=== PATIENT | female | born 1940 | race Caucasian/White ===

== ENCOUNTER 2019-11-13 11:02 | Inpatient (IN) | payer MEDICARE, SELFPAY ==
[2019-11-13] VITALS (12 sets, daily range): BP systolic 120–165; BP diastolic 49–108; PULSE 85–118; RESP 14–27; TEMP 36–36.8; O2SAT 92–98; BMI 33.8
--- NOTE | 2019-11-13 | ECHO_ITS ---
Patient Info Name: Luz Guardado Age: 79 years : 1940 Gender: Female Ht: 65 in Wt: 207 lbs BSA: 2.11 m2 HR: 100 bpm BP: 128 / 49 mmHg Heart Rhythm: Sinus Rhythm Technical Quality: Good Exam Date: 11/13/2019 3:50 PM Exam Location: [facility] Patient Status: Inpatient Admit Date: 11/13/2019 Staff Ordering Physician: Sendy Canales MD Valve And Regulator Repairer: Vu Palmer RDCS Attending Provider: Ember Vale MD Referring Physician: Ally PURDY; Exam Type: CA echo dop color flow w con Study Info Indications I50.9 - Heart failure, unspecified Strain analysis performed. Complete two-dimensional, color flow and Doppler transthoracic echocardiogram is performed with contrast to opacify the left ventricle and to improve the deliniation of the left ventricle endocardial borders. Contrast/Agitated Saline Contrast/Ag. Saline: Definity Amount: 3.00 ml Administered By: Karyn De Anda RN Existing IV Access: Yes History/Risk Factors CHF; elevated trops, NSTEMI v STEMI, BNP 8920, SOB, edema, HTN. Summary 1. Severe left ventricular dysfunction with akinesis of the mid and distal anteroseptal rene, as well as distal inferior and lateral rene consistent with an ischemic cardiomyopathy. Apical dyskinesis. Calculated ejection fraction 37%, visual estimate of EF is 30-35%. Diastolic dysfunction grade 1 is present. The global longitudinal strain is-7%, severely diminished. Mild concentric left ventricular hypertrophy, normal left ventricular size. 2. Trivial mitral and tricuspid regurgitation. 3. No evidence of pulmonary hypertension. 4. Normal sinus rhythm. Left Ventricle Left ventricular chamber dimension is normal. Left ventricular systolic function is normal, estimated at 30-35%. There is mildly increased left ventricular wall thickness. Left ventricular septal wall motion is normal. The left ventricular diastolic function is grade I diastolic dysfunction. Global longitudinal strain is severely elevated at 7 %. Right Ventricle Right ventricular chamber dimension is normal. Right ventricular systolic function is normal. Left Atria Left atrial chamber dimension is normal. Right Atria Right atrial chamber dimension is normal. Aortic Valve The aortic valve is trileaflet. There is no aortic valve sclerosis. There is no aortic valve stenosis. There is no aortic valve regurgitation. Pulmonic Valve The pulmonic valve is normal. There is no pulmonic valve stenosis. There is no pulmonic regurgitation. Mitral Valve The mitral valve has normal leaflets. There is no mitral valve stenosis. There is trace mitral valve regurgitation. Tricuspid Valve The tricuspid valve leaflets are normal. There is no significant tricuspid valve stenosis. There is trace tricuspid valve regurgitation. No pulmonary hypertension, estimated pulmonary arterial systolic pressure is 27 mmHg. Pericardium/Pleural The pericardium appears normal. There is no pericardial effusion. Inferior Vena Cava Normal inferior vena cava with >50% collapse upon inspiration consistent with Empty right atrial pressure, 5 mmHg. Aorta The aortic root size at the sinus of Valsalva is normal. The prox ascending aorta size is normal. Left Ventricular Outflow Tract Name Value Normal --------
--- NOTE | ~2019-11-13 | US_ITS ---
EXAMINATION: US venous doppler LE EXAM DATE: 11/13/2019 16:44 INDICATION: Bilateral leg edema. TECHNIQUE: Multiple grayscale, color flow and Doppler images of the lower extremity deep venous syste ms bilaterally were obtained and reviewed. Comparison is made to prior examination from 08/26/2014. FINDINGS: Bilateral calf edema noted. Right side: The right common femoral, femoral and profunda veins demonstrate normal color flow, respi ratory variation, augmentation and compressibility. Compressibility, color flow confirmed within the right popliteal, posterior tibial, peroneal, and greater saphenous veins. Left side: The left common femoral, femoral and profunda veins demonstrate normal color flow, respira tory variation, augmentation and compressibility. Compressibility, color flow confirmed within the l eft popliteal, posterior tibial, peroneal, and greater saphenous veins. IMPRESSION: 1. No lower extremity deep venous thrombosis bilaterally. Reviewed, dictated and finalized at location A.
--- NOTE | ~2019-11-13 | NM_ITS ---
EXAMINATION: NM tay stress w perfusion DATE: 11/15/2019 11:45 INDICATION: Ischemic cardiomyopathy. Congestive heart failure. TECHNIQUE: Rest images were obtained following intravenous administration of 10.6 mCi Tc99m tetrofosm in (Myoview). The patient was infused intravenously with Lexiscan (regadenoson). Then, 20.2 mCi Tc99m tetrofosmin (Myoview) was administered intravenously, and stress images were obtained. Data was erinn nstructed into short axis and horizontal and vertical long axis SPECT images. Gated SPECT images coul d not be obtained due to arrhythmia. COMPARISON: Chest CT 11/13/2019 FINDINGS: There is a large, severe, fixed perfusion defect involving left ventricular apex, apical se gments, mid anterior segment, and mid anterolateral segment, consistent with infarct. There are small , mild, reversible perfusion defects involving mid anterior and mid inferolateral segments of left ve ntricle, consistent with ischemia. IMPRESSION: 1. Large area severe infarct centered at left ventricular apex. 2. Small areas of mild ischemia involving mid anterior and mid inferolateral segments of left ventric le. 3. Ejection fraction could not be measured. Reviewed, dictated and finalized at location A. IMPRESSION: 1. Large area severe infarct centered at left ventricular apex. 2. Small areas of mild ischemia involving mid anterior and mid inferolateral se gments of left ventricle. 3. Ejection fraction could not be measured.
--- NOTE | ~2019-11-13 | CT_ITS ---
EXAMINATION: CTA chest PE protocol DATE: 11/13/2019 12:31 INDICATION: Shortness of breath. TECHNIQUE: Computed tomography angiography (CTA) of the chest was performed with 100 mL Omnipaque-350 intravenous contrast timed to evaluate the pulmonary arteries. Coronal maximum intensity projection 3D-reconstructions were created by the technologist. Automated exposure control and iterative reconst ruction technique were employed. The dose-length product was 576.47 mGy-cm. COMPARISON: None. FINDINGS: There are moderate-sized right and small left pleural effusions. There is passive atelectas is in the inferior lungs. There is smooth septal thickening in the lungs, consistent with pulmonary e kay. There is a multinodular goiter that extends into the superior mediastinum. There is left ventri cular and left atrial enlargement of the heart. No pericardial effusion. There is no pulmonary embolu s. There is mild left hilar lymphadenopathy, likely reactive. There is severe thoracic spondylosis. IMPRESSION: 1. No pulmonary embolus. 2. Mild pulmonary edema. 3. Moderate-sized right and small left pleural effusions. Reviewed, dictated and finalized at location A.
--- NOTE | 2019-11-13 11:09 | ED.SOB ---
HPI - SOB/Dyspnea General Chief Complaint: Shortness of Breath/Dyspnea Stated Complaint: chf Time Seen by Provider: 11/13/19 11:09 Source: patient Mode of arrival: ambulatory Limitations: no limitations History of Present Illness HPI Narrative: Patient is a 79-year-old female who presents for evaluation of shortness of breath. Patient reportedly with shortness of breath over the past several days. Shortness of breath is not necessarily worse with exertion, but patient is unable to lay flat due to this. She reports minimal lower extremity swelling. She denies any chest pain. No recent cough, cold, fever, congestion. No belly pain, nausea or vomiting. Patient states her symptoms seem to worsen as mold counts increased, she has a history of allergies, no history of asthma and initially thought her symptoms were due to this. Related Data Home Medications Medication Instructions Recorded Confirmed aspirin 81 mg tablet,delayed 81 mg PO DAILY 05/15/19 release blood sugar diagnostic #10 each 05/15/19 celecoxib 200 mg capsule 200 mg PO BID 05/15/19 latanoprost 0.005 % eye drops 1 drop EACH EYE DAILY 05/15/19 naproxen sodium 220 mg capsule 220 mg PO BID PRN 05/15/19 omega-3 fatty acids 1,000 mg 1,000 mg PO BID 05/15/19 capsule sitagliptin 50 mg-metformin ER 1 tablet PO DAILY 05/15/19 1,000 mg tablet,extended release 24h mp vitamin E 200 unit capsule 200 unit PO DAILY 05/15/19 Allergies Allergy/AdvReac Type Severity Reaction Status Date / Time No Known Allergies Allergy Verified 11/13/19 11:11 Review of Systems Review of Systems: Narrative: CONSTITUTIONAL: Denies fever, chills, or sweats. EYES: Denies visual changes, redness, or discharge. ENT: Denies rhinorrhea, congestion, sore throat, or otalgia. CARDIOVASCULAR: Denies chest pain, palpitations, or edema. RESPIRATORY: Reports shortness of breath GASTROINTESTINAL: Denies abdominal pain, nausea, vomiting, or diarrhea. GENITOURINARY: Denies dysuria or hematuria. SKIN: Denies rash or itching. MUSCULOSKELETAL: Denies back pain, joint pain, or myalgia. NEUROLOGIC: Denies headache, numbness, or weakness. [facility] Past Medical History Medical History (Updated 11/13/19 @ 13:28 by Sendy Canales MD) Hypertension Seasonal allergies Thyroid goiter Social History Social History Smoking status: Never smoker Second hand tobacco smoke exposure: No Alcohol intake: never Exam Narrative: Exam Narrative: GENERAL: Awake, alert, conversant HEAD: Normocephalic, atraumatic. EYES: PERRLA and EOMI. ENT: Nares clear, no rhinorrhea or epistaxis. Mucous membranes moist. NECK: Supple. Goiter. CHEST: Tachypneic, mild use of accessory muscles to breathe HEART: Tachycardic rate, sinus rhythm ABDOMEN:Non distended, non tender EXTREMITIES: Normal range of motion. Pitting edema, mid shins bilateral lower extremities. No calf tenderness or erythema. SKIN: Warm, dry, no rash. NEURO:No focal deficits. Alert and oriented x3 Course Vital Signs Vital signs: Vital Signs Temperature 36.5 C 11/13/19 11:05 Pulse Rate 118 H 11/13/19 11:05 Respiratory Rate 22 H 11/13/19 11:05 Blood Pressure 165/89 H 11/13/19 11:05 Pulse Oximetry 92 11/13/19 11:05 Temperature 36.5 C 11/13/19 11:05 Pulse Rate 114 H 11/13/19 13:11 Respiratory Rate 27 H 11/13/19 13:11 Blood Pressure 146/108 H 11/13/19 13:11 Pulse Oximetry 95 11/13/19 13:11 MDM - SOB/Dyspnea MDM Narrative Medical decision making narrative: Patient presented for evaluation of shortness of breath from her primary care physician's office. At the time of initial assessment, ABCs are intact, vital signs are notable for hypertension, tachycardia, borderline hypoxemia and tachypnea. Clinical exam notable for coarse breath sounds bilaterally, crackles bilaterally with concern for CHF given the patient's history. Laboratory results are notable for elevated BNP, mildly elevated troponin, EKG w
--- NOTE | 2019-11-13 11:12 | ECG_ITS ---
Measurements Intervals [place] Rate: 121 P: 70 GA: 148 QRS: -18 QRSD: 106 T: 60 QT: 282 QTc: 401 Interpretive Statements SINUS TACHYCARDIA LOW QRS VOLTAGE- LIMB LEADS POOR R WAVE PROGRESSION, ANTERIOR LEADS ANTEROLATERAL ST ELEVATION- CONSIDER ACUTE INJURY HIGH LATERAL ST ELEVATION- CONSIDER ACUTE INJUR BASELINE ARTIFACT- II, III, AVF ABNORMAL ECG Electronically Signed On 11-13-2019 12:47:36 CDT by Deep Valdivia D.O.
[2019-11-13 11:31] LABS: Basophils Absolute Auto 0.1 K/mm3 (0.0-0.1); Basophils Percent Auto 0.5 % (0.2-1.2); Eosinophils Absolute Auto 0.2 K/mm3 (0-0.3); Eosinophils Percent Auto 1.4 % (0-4.4); Hematocrit 38.6 % (37.0-47.0); Hemoglobin 12.6 g/dL (12.0-15.0); Immature Granulocyte Absolute 0.04 K/mm3 (0.00-0.031); Immature Granulocyte Percent A 0.4 % (0-0.5); Lymphocytes Absolute Auto 3.74 K/mm3 (0.9-3.2); Lymphocytes Percent Auto 32.8 % (18.3-44.2); Mean Corpuscular HGB Conc 32.6 g/dl (32-36); Mean Corpuscular Hemoglobin 30.2 pg (26-34); Mean Corpuscular Volume 92.6 fl (80-100); Mean Platelet Volume 11.2 fl (7.4-10.4); Monocytes Absolute Auto 0.9 K/mm3 (0.1-0.6); Monocytes Percent Auto 7.8 % (2.6-8.5); Neutrophils Absolute Auto 6.5 K/mm3 (1.3-6.7); Neutrophils Percent Auto 57.1 % (45.5-73.1); Platelet Count Result 383 k/mm3 (150-375); Red Blood Count 4.17 M/mm3 (4.2-5.4); Red Cell Distribution Width 13.2 % (11.5-14.5); White Blood Count 11.4 K/mm3 (4.5-10.0)
[2019-11-13 11:36] LABS: Prothrombin Time 13.1 Seconds (11.1-14.7)
[2019-11-13 11:37] LABS: Partial Thromboplastin Time 26.9 SECONDS (22.3-36.8)
[2019-11-13 11:38] LABS: Blood Urea Nitrogen 9 mg/dL (7-17); Calcium 9.1 mg/dL (8.4-10.2); Carbon Dioxide 21 mmol/L (22-30); Chloride 104 mmol/L (98-107); Estimated CRCL calculation 73 ml/min; Estimated Glomerular Filt Rate > 60; Glucose 112 mg/dL (65-105); Potassium 4.1 mmol/L (3.4-5.0); Sodium 136 mmol/L (137-145)
[2019-11-13 11:39] LABS: Alveolar/Arterial O2 Gradient 61.5 mmHg; Base Excess ABG -5.3 mEq/l (+/-2.0); Fractional Inspired Oxygen 21 %; HCO3 ABG 18.5 mEq/l (22.0-26.0); Oxygen Content ABG 14.3 %vol (16.0-22.0); PCO2 ABG 30.9 mmHg (35.0-45.0); PO2 ABG 51.2 mmHg (80.0-100.0); PO2 FiO2 Ratio Arterial Blood 2.44 %; Total Hemoglobin 13.2 g/dL (12.0-18.0); pH ABG 7.394 (7.350-7.450)
[2019-11-13 11:39] LABS: D Dimer 0.77 ug/mL (<0.48)
[2019-11-13 11:41] LABS: Device ROOM AIR; Modified Allen's Test Pass; Oxygen Saturation ABG 86.6 % (95.0-100.0); Site Drawn RIGHT RADIAL
[2019-11-13 12:06] LABS: NT Pro B Type Natriuretic Pept 8920 PG/ML (5-100); Troponin I 0.532 ng/mL (0.000-0.034)
[2019-11-13] MEDS: FUROSEMIDE INJ 40 MG/4 ML VIAL 20 MG IV PUSH (13:38)
--- NOTE | 2019-11-13 15:07 | ADMGEN ---
This patient, Luz Guardado, was admitted to IMU Room 206-01 on 11-13-2019 at 1430. Patient/family oriented to hospital policies and general routines including ID bracelet, bed and alarms, visiting hours, pain management, procedures, bathroom and other care routines, personal items, smoking policy, room service/diet, and visiting hours. Valuables list has been completed. Information on how to activate the Rapid Response Team has been discussed. Patient/Family are encouraged to report perceived risks to care and to ask questions if they do not understand what they are told or what they should do.
[2019-11-13 15:09] LABS: Glucose Point of Care 131 (65-105)
[2019-11-13 15:52] LABS: Troponin I 0.591 ng/mL (0.000-0.034)
--- NOTE | 2019-11-13 15:54 | ECG_ITS ---
Measurements Intervals [place] Rate: 99 P: 60 CT: 166 QRS: -6 QRSD: 105 T: 121 QT: 381 QTc: 491 Interpretive Statements SINUS RHYTHM POSSIBLE LEFT ATRIAL ENLARGEMENT LOW QRS VOLTAGE IN LIMB LEADS ANTEROLATERAL ST ELEVATION MYOCARDIAL INFARCT- PROBABLY RECENT HIGH LATERAL ST ELEVATION- CONSIDER ACUTE INJURY BASELINE ARTIFACT- II, III, AVF ABNORMAL ECG Electronically Signed On 11-13-2019 17:07:11 CDT by Deep Valdivia D.O.
[2019-11-13 16:13] LABS: Hemoglobin A1C 6.5 % (<5.7)
[2019-11-13 16:27] LABS: Alanine Aminotransferase 18 U/L (4-35); Albumin Level 4.4 g/dL (3.5-5.1); Alkaline Phosphatase 75 U/L (38-126); Aspartate Amino Transferase 38 U/L (14-36); Bilirubin,Total 0.5 mg/dL (0.2-1.3)
[2019-11-13] MEDS: PERFLUTREN LIPID MICROSPHERES 1.5 ML VIAL DILUTED TO 10 ML TOTAL VOLUME IV PUSH (16:49)
[2019-11-13] MEDS: NITROGLYCERIN OINTMENT 1 INCH DOSE TRANSDERM ×2 (17:06→23:40)
[2019-11-13] MEDS: ENOXAPARIN 40 MG/0.4 ML SYRINGE SUB-Q (17:06)
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
[2019-11-13 18:55] LABS: Troponin I 0.652 ng/mL (0.000-0.034)
[2019-11-13] MEDS: ASPIRIN 81 MG CHEWABLE TABLET 324 MG PO (18:58)
[2019-11-13] MEDS: ACETAMINOPHEN 325 MG TABLET 650 MG PO (19:36)
[2019-11-13] MEDS: ENOXAPARIN 100 MG/ML SYRINGE 90 MG SUB-Q (21:23)
[2019-11-13] MEDS: carvediloL 3.125 MG TABLET PO (21:23)
[2019-11-13] MEDS: LATANOPROST 0.005% OP SOLN 2.5 ML BTL 1 DROP EACH EYE (22:34)
[2019-11-13 22:46] LABS: Glucose Point of Care 98 (65-105)
[2019-11-14] VITALS (20 sets, daily range): BP systolic 108–138; BP diastolic 46–81; PULSE 76–95; RESP 12–20; TEMP 35.9–36.7; O2SAT 92–98
[2019-11-14 04:37] LABS: Basophils Absolute Auto 0.1 K/mm3 (0.0-0.1); Basophils Percent Auto 0.7 % (0.2-1.2); Eosinophils Absolute Auto 0.2 K/mm3 (0-0.3); Eosinophils Percent Auto 2.3 % (0-4.4); Hematocrit 33.7 % (37.0-47.0); Hemoglobin 10.9 g/dL (12.0-15.0); Immature Granulocyte Absolute 0.02 K/mm3 (0.00-0.031); Immature Granulocyte Percent A 0.2 % (0-0.5); Lymphocytes Absolute Auto 2.71 K/mm3 (0.9-3.2); Lymphocytes Percent Auto 33.1 % (18.3-44.2); Mean Corpuscular HGB Conc 32.3 g/dl (32-36); Mean Corpuscular Hemoglobin 29.8 pg (26-34); Mean Corpuscular Volume 92.1 fl (80-100); Mean Platelet Volume 11.2 fl (7.4-10.4); Monocytes Percent Auto 12.7 % (2.6-8.5); Neutrophils Absolute Auto 4.2 K/mm3 (1.3-6.7); Platelet Count Result 294 k/mm3 (150-375); Red Blood Count 3.66 M/mm3 (4.2-5.4); White Blood Count 8.2 K/mm3 (4.5-10.0)
[2019-11-14 04:48] LABS: Blood Urea Nitrogen 14 mg/dL (7-17); Calcium 8.3 mg/dL (8.4-10.2); Carbon Dioxide 26 mmol/L (22-30); Chloride 103 mmol/L (98-107); Cholesterol 105 mg/dL (0-200); Estimated CRCL calculation 63 ml/min; Estimated Glomerular Filt Rate > 60; Glucose 134 mg/dL (65-105); Magnesium 1.5 mg/dL (1.6-2.3); Potassium 3.7 mmol/L (3.4-5.0); Sodium 136 mmol/L (137-145)
[2019-11-14] MEDS: NITROGLYCERIN OINTMENT 1 INCH DOSE TRANSDERM (06:23)
[2019-11-14 07:50] LABS: Glucose Point of Care 126 (65-105)
[2019-11-14] MEDS: OLMESARTAN MEDOXOMIL 20 MG TABLET 40 MG PO (09:51)
[2019-11-14] MEDS: ASPIRIN 81 MG ENTERIC TABLET PO (09:51)
[2019-11-14] MEDS: VITAMIN E 100 UNIT CAPSULE 200 UNIT PO (09:52)
[2019-11-14] MEDS: OMEGA 3 POLYUNSAT FATTY ACIDS 1 GM CAP PO (09:52)
[2019-11-14] MEDS: ENOXAPARIN 100 MG/ML SYRINGE 90 MG SUB-Q ×2 (09:53→20:33)
[2019-11-14] MEDS: ATORVASTATIN 40 MG TABLET PO (09:53)
[2019-11-14] MEDS: SPIRONOLACTONE 25 MG TABLET PO (09:54)
[2019-11-14] MEDS: FUROSEMIDE INJ 40 MG/4 ML VIAL 20 MG IV PUSH ×2 (09:54→16:41)
[2019-11-14] MEDS: carvediloL 3.125 MG TABLET PO ×2 (09:54→20:33)
[2019-11-14 11:41] LABS: Glucose Point of Care 100 (65-105)
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
--- NOTE | 2019-11-14 14:17 | PM.IMPN ---
Progress Note: A&P Assessment and Plan (1) Acute combined systolic and diastolic CHF, NYHA class 1: Onset Date: ~11/2019 Code(s): I50.41 - Acute combined systolic (congestive) and diastolic (congestive) heart failure Status: Inactive Assessment and Plan: Echocardiogram with a visually estimated at 30 to 35% with diastolic dysfunction grade 1. Continue to diuresis (2) Recent myocardial infarction of anterior wall: Status: Acute Assessment and Plan: Echocardiogram today shows findings consistent with ischemic cardiomyopathy with severe left ventricular dysfunction and akinesis of the mid and distal anteroseptal rene as well as the distal inferior and lateral rene with apical dyskinesis. Dr. Lainez has seen the patient, continue cardiology orders (3) Hypertension: Code(s): I10 - Essential (primary) hypertension Status: Acute Assessment and Plan: Will monitor closely given the addition of new medications (4) Type 2 diabetes mellitus: Code(s): E11.9 - Type 2 diabetes mellitus without complications Status: Acute Assessment and Plan: Hold Janumet as she did receive IV contrast today. Initiate sliding scale insulin, Accu-Cheks, and hypoglycemic protocol. Subjective Date/time seen: 11/14/19 14:17 Interval history: 79-year-old female with type 2 diabetes mellitus and hypertension who presented to the emergency department earlier this morning via private vehicle from home for evaluation of shortness of breath. Echo is EF 30% CT scan of chest shows small pleural effusion BL, trop slightly elevated. Pt seen by cardiology going for lexiscan royal AM, continue diuresis with IV lasix. Review of Systems Review of Systems: All systems reviewed & are unremarkable except as noted in HPI and below Cardiovascular: Cardiovascular: Denies chest pain Respiratory: Respiratory: Reports cough, Reports dyspnea and Reports dyspnea on exertion Exam Narrative: Exam Narrative: General: Well-developed elderly female sitting up in bed in no acute distress. Respiratory: Clear bilateral decreased air entry Cardiovascular: Regular rate and rhythm Gastrointestinal: Abdomen is soft, nontender Skin: Warm and dry. Extremities: No cyanosis or clubbing. Neurological: Alert. Cranial nerves 2-12 are grossly intact. No gross focal deficits to casual conversation. Psychiatric: Pleasant and cooperative with normal mood and affect. Objective Data Vital Signs Vital Signs: Vital Signs - 24 hr 11/13/19 14:30 11/13/19 15:09 11/13/19 16:00 Temperature 36.0 C L Pulse Rate 113 H 109 H 95 Respiratory Rate 14 Blood Pressure 141/89 H Pulse Oximetry 98 11/13/19 18:00 11/13/19 20:00 11/13/19 22:00 Temperature 36.1 C L Pulse Rate 110 H 98 85 Respiratory Rate 22 H Blood Pressure 120/59 L Pulse Oximetry 97 11/13/19 23:37 11/14/19 01:29 11/14/19 04:00 Temperature 36.8 C 36.2 C L Pulse Rate 96 81 80 Respiratory Rate 22 H 20 Blood Pressure 142/65 H 108/55 L Pulse Oximetry 98 96 11/14/19 06:00 11/14/19 07:55 11/14/19 08:00 Temperature 36.2 C L Pulse Rate 87 89 79 Respiratory Rate 12 Blood Pressure 138/63 Pulse Oximetry 98 11/14/19 08:48 11/14/19 09:54 11/14/19 10:00 Temperature Pulse Rate 88 83 Respiratory Rate Blood Pressure Pulse Oximetry 97 11/14/19 11:47 11/14/19 12:00 11/14/19 12:26 Temperature 36.1 C L Pulse Rate 86 84 Respiratory Rate 14 Blood Pressure 115/56 L Pulse Oximetry 96 95 11/14/19 13:03 Temperature Pulse Rate Respiratory Rate Blood Pressure Pulse Oximetry 92 Intake/Output Intake/Output: Intake & Output 11/11/19 06/0
[2019-11-14 16:00] LABS: Glucose Point of Care 153 (65-105)
[2019-11-14] MEDS: MAGNESIUM OXIDE 400 MG TABLET PO (16:40)
[2019-11-14] MEDS: LATANOPROST 0.005% OP SOLN 2.5 ML BTL 1 DROP EACH EYE (20:33)
[2019-11-14] MEDS: ACETAMINOPHEN 325 MG TABLET 650 MG PO (20:35)
[2019-11-14 20:43] LABS: Glucose Point of Care 126 (65-105)
[2019-11-15] VITALS (16 sets, daily range): BP systolic 118–142; BP diastolic 44–86; PULSE 70–94; RESP 16–20; TEMP 35.8–36.4; O2SAT 92–100
[2019-11-15] MEDS: ACETAMINOPHEN 325 MG TABLET 650 MG PO ×2 (04:40→20:25)
[2019-11-15 08:20] LABS: Glucose Point of Care 152 (65-105)
--- NOTE | 2019-11-15 09:58 | PM.PNCARD ---
Progress Note: A&P Assessment and Plan (1) Recent myocardial infarction of anterior wall: Status: Acute Assessment and Plan: Appears to have had a recent NE and has residual ischemic cardiomyopathy. Episode of chest tightness and slight pain 3 weeks ago with a traumatic event, no further tightness. Likely a completed infarct. (2) Congestive heart failure: Qualifiers: Heart failure type: other Qualified Code(s): I50.9 - Heart failure, unspecified Code(s): I50.9 - Heart failure, unspecified Status: Acute Assessment and Plan: Ischemic cardiomyopathy with CHF. Diuresing with IV Lasix and improving. Continue carvedilol, aspirin, spironolactone Will change Olmesartan to Entresto [place] will be $47/[place] Lexiscan pending Cardiac catheterization on Tuesday if significant ischemia found. 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 Also will be $47/ month BMP, magnesium and CBC today. (3) Hypertension: Qualifiers: Hypertension type: essential hypertension Qualified Code(s): I10 - Essential (primary) hypertension Code(s): I10 - Essential (primary) hypertension Status: Acute Assessment and Plan: Not at goal but improved. (4) Hypomagnesemia: Code(s): E83.42 - Hypomagnesemia Status: Acute Assessment and Plan: Check Mag level today. Continue Mag oxide. Additional Plan Further recommendations pending the outcome of the Lexiscan. Plan discussed with Dr Lainez 1005 11/15/2019 Time Spent With Patient Time with patient: 15 - 25 minutes Subjective Date/time seen: 11/15/19 09:38 Seen in stress lab Interval history: Follow up for: CHF, troponin of 0.5, and appears to have had a recent NE with ischemic cardiomyopathy. Date of service: 11/15/2019 Subjective: Leg cramps overnight. No chest discomfort. Shortness of breath is resolving. Still unable to lay flat in bed Review of Systems Constitutional: Constitutional: Reports fatigue and Denies weakness Eyes: Eyes: Denies blurry vision ENT: Denies epistaxis and Reports nasal discharge Cardiovascular: Cardiovascular: Denies chest pain, Denies pedal edema, Reports leg edema, Denies lightheadedness, Denies palpitations, Denies dyspnea, Denies dyspnea on exertion and Reports orthopnea Respiratory: Respiratory: Denies chest congestion, Reports cough, Denies dyspnea and Denies dyspnea on exertion Gastrointestinal: Gastrointestinal: Denies abdominal pain, Denies melena, Denies hematochezia, Denies heartburn, Denies nausea and Denies vomiting Genitourinary: Genitourinary: Denies hematuria Musculoskeletal: Musculoskeletal: Reports back pain (Chronic) and Reports arthralgias Integumentary/Breasts: Skin/Breast: Denies rash Neurologic: Denies behavioral changes, Denies confusion and Denies weakness Psychiatric: Psychiatric: Denies behavioral changes and Denies confusion Endocrine: Endocrine: Reports fatigue and Denies palpitations Hematologic/Lymphatic: Hematologic/Lymphatic: Denies easy bruising Exam Narrative: Exam Narrative: Pleasant, well-groomed female in no distress. Comfortable on the stretcher in stress lab Const: General: comfortable and no acute distress; No confusion Orientation/consciousness: No confusion HENMT: General nose exam: Normal nares present and no epistaxis Mouth: Yes moist mucous membranes Eyes: EOM: EOMs intact bilaterally Neck: Neck: supple and no JVD Resp: Effort & Inspection: normal respiratory effort and able to speak in complete sentences Auscultation: clear to auscultation bilaterally Cardio: Rate: regular rate Rhythm: regular rhythm Heart sounds: no gallops and no murmurs GI: Inspection:
--- NOTE | 2019-11-15 12:03 | EST_ITS ---
Patient Info Name: Luz Guardado Age: 79 years : 1940 Gender: Female Ht: 65 in Wt: 207 lbs BSA: 2.11 m2 HR: 83 bpm BP: 124 / 62 mmHg Heart Rhythm: Sinus Rhythm Exam Date: 11/15/2019 9:20 AM Exam Location: [facility] Stress Patient Status: Inpatient Admit Date: 11/14/2019 Staff Ordering Physician: Monica Lainez MD Attending Provider: Ember Vale MD Exercise Technologist: Dusty Seay, RDCS, RT Nurse: Siena Bettencourt, ANP, ACNP-BC Exam Type: CA stress tay w NM Study Info Indications R06.02 - Shortness of breath A regadenoson stress test was performed. Summary 1. REsting EKG: NSR w/ extensive inferior and anterolateral WI, residual ST elevation V4-V6. Low voltage. 2. No abnormal ST-T wave changes with lexiscan. 3. Nuclear test results to follow. Protocol: Lexiscan Stress ECG Details Stage: REST Duration (min): 0 min : 56 sec HR (bpm): 81 SBP (mmHg): 124 DBP (mmHg): 62 Stage: REST Duration (min): 10 min : 49 sec HR (bpm): 103 SBP (mmHg): 124 DBP (mmHg): 62 Stage: STAGE 1 Duration (min): 1 min : 0 sec HR (bpm): 115 SBP (mmHg): 148 DBP (mmHg): 94 Stage: RECOVERY Duration (min): 1 min : 0 sec HR (bpm): 107 SBP (mmHg): 148 DBP (mmHg): 94 Stage: RECOVERY Duration (min): 2 min : 0 sec HR (bpm): 104 SBP (mmHg): 148 DBP (mmHg): 94 Stage: RECOVERY Duration (min): 3 min : 0 sec HR (bpm): 101 SBP (mmHg): 123 DBP (mmHg): 51 Stage: RECOVERY Duration (min): 3 min : 39 sec HR (bpm): 100 SBP (mmHg): 123 DBP (mmHg): 51 Rest HR: 103 bpm Peak HR: 115 bpm Rest Sys BP: 124 mmHg Peak Sys BP: 148 mmHg Max Pred HR: 141 bpm % Max Pred HR: 82 % Target HR: 120 bpm Max RPP: 17,020 bpm*mmHg BP Response: Normal blood pressure response Termination Reason: Completed protocol Cardiac Symptoms: None Total Time: 1 min : 0 sec Rest Santiago BP: 62 mmHg Peak Santiago BP: 94 mmHg Total Dose: 0.4 mg Resting ECG REsting EKG: NSR w/ extensive inferior and anterolateral WI, residual ST elevation V4-V6. Low voltage. Stress ECG No abnormal ST/T wave changes with exercise. Arrhythmias Occasional PVCs. Report Signatures
[2019-11-15] MEDS: ASPIRIN 81 MG ENTERIC TABLET PO (12:06)
[2019-11-15] MEDS: MAGNESIUM OXIDE 400 MG TABLET PO ×2 (12:06→16:44)
[2019-11-15] MEDS: ENOXAPARIN 100 MG/ML SYRINGE 90 MG SUB-Q ×2 (12:07→20:24)
[2019-11-15] MEDS: FUROSEMIDE INJ 40 MG/4 ML VIAL 20 MG IV PUSH ×2 (12:07→16:44)
[2019-11-15] MEDS: OMEGA 3 POLYUNSAT FATTY ACIDS 1 GM CAP PO (12:08)
[2019-11-15] MEDS: carvediloL 3.125 MG TABLET PO ×2 (12:08→20:24)
[2019-11-15] MEDS: ATORVASTATIN 40 MG TABLET PO (12:08)
[2019-11-15] MEDS: SPIRONOLACTONE 25 MG TABLET PO (12:09)
[2019-11-15] MEDS: VITAMIN E 100 UNIT CAPSULE 200 UNIT PO (12:10)
[2019-11-15 12:26] LABS: Glucose Point of Care 145 (65-105)
[2019-11-15 13:13] LABS: Blood Urea Nitrogen 15 mg/dL (7-17); Calcium 9.1 mg/dL (8.4-10.2); Carbon Dioxide 30 mmol/L (22-30); Chloride 99 mmol/L (98-107); Estimated CRCL calculation 74 ml/min; Estimated Glomerular Filt Rate > 60; Glucose 153 mg/dL (65-105); Magnesium 1.6 mg/dL (1.6-2.3); Potassium 3.8 mmol/L (3.4-5.0); Sodium 136 mmol/L (137-145)
[2019-11-15 13:25] LABS: Hemoglobin 12.5 g/dL (12.0-15.0); Mean Corpuscular HGB Conc 32.9 g/dl (32-36); Mean Corpuscular Hemoglobin 30.7 pg (26-34); Mean Corpuscular Volume 93.4 fl (80-100); Mean Platelet Volume 12.4 fl (7.4-10.4); Platelet Count Result 340 k/mm3 (150-375); Red Blood Count 4.07 M/mm3 (4.2-5.4); Red Cell Distribution Width 13.2 % (11.5-14.5); White Blood Count 7.3 K/mm3 (4.5-10.0)
--- NOTE | 2019-11-15 14:38 | PM.IMPN ---
Progress Note: A&P Assessment and Plan (1) Recent myocardial infarction of anterior wall: Status: Acute Assessment and Plan: Echocardiogram today shows findings consistent with ischemic cardiomyopathy with severe left ventricular dysfunction and akinesis of the mid and distal anteroseptal rene as well as the distal inferior and lateral rene with apical dyskinesis. Dr. Lainez has seen the patient, continue cardiology orders Lexiscan today results reviewed, continue to diuresis today and discharge tomorrow. (2) Hypertension: Qualifiers: Hypertension type: essential hypertension Qualified Code(s): I10 - Essential (primary) hypertension Code(s): I10 - Essential (primary) hypertension Status: Acute Assessment and Plan: Will monitor closely given the addition of new medications (3) Type 2 diabetes mellitus: Code(s): E11.9 - Type 2 diabetes mellitus without complications Status: Acute Assessment and Plan: Hold Margarita as she did receive IV contrast today. Initiate sliding scale insulin, Accu-Cheks, and hypoglycemic protocol. Subjective Date/time seen: 11/15/19 14:38 Interval history: 79-year-old female with type 2 diabetes mellitus and hypertension who presented to the emergency department earlier this morning via private vehicle from home for evaluation of shortness of breath. Echo is EF 30% CT scan of chest shows small pleural effusion BL, trop slightly elevated. Pt seen by cardiology going for lexiscan, if scan is positive pt will need heart catherisation. Continue to diuresis with iv lasix today. Review of Systems Review of Systems: All systems reviewed & are unremarkable except as noted in HPI and below Cardiovascular: Cardiovascular: Reports dyspnea on exertion Respiratory: Respiratory: Reports dyspnea and Reports dyspnea on exertion Exam Narrative: Exam Narrative: General: Well-developed elderly female sitting up in bed in no acute distress. Respiratory: Clear bilateral decreased air entry Cardiovascular: Regular rate and rhythm Gastrointestinal: Abdomen is soft, nontender Skin: Warm and dry. Extremities: No cyanosis or clubbing. Neurological: Alert. Cranial nerves 2-12 are grossly intact. No gross focal deficits to casual conversation. Psychiatric: Pleasant and cooperative with normal mood and affect. Objective Data Vital Signs Vital Signs: Vital Signs - 24 hr 11/14/19 15:59 11/14/19 16:00 11/14/19 18:00 Temperature 35.9 C L Pulse Rate 88 95 94 Respiratory Rate 12 Blood Pressure 112/46 L Pulse Oximetry 95 11/14/19 19:48 11/14/19 20:00 11/14/19 22:00 Temperature 36.7 C Pulse Rate 84 76 81 Respiratory Rate 18 Blood Pressure 108/81 Pulse Oximetry 93 11/14/19 23:28 11/15/19 00:00 11/15/19 02:00 Temperature 36.4 C L Pulse Rate 84 77 70 Respiratory Rate 20 Blood Pressure 124/61 Pulse Oximetry 98 11/15/19 03:41 11/15/19 04:31 11/15/19 05:53 Temperature 36.1 C L Pulse Rate 73 89 79 Respiratory Rate 20 Blood Pressure 123/86 Pulse Oximetry 96 11/15/19 08:00 11/15/19 12:00 11/15/19 12:08 Temperature 35.8 C L 36.4 C Pulse Rate 90 94 88 Respiratory Rate 18 20 Blood Pressure 140/55 L 142/71 H Pulse Oximetry 98 98 Intake/Output Intake/Output: Intake & Output 11/12/19 11/13/19 11/14/19 11/15/19 23:59 23:59 23:59 23:59 Intake Total 240 2050 390 Output Total 1250 300 Balance 240 800 90 Meds/Results Medications: Active Medications Generic Name Dose Route Start Last Admin Trade Name Freq PRN Reason Stop Dose Admin Acetaminophen 650 mg 11/13/19 13:21 11/15/19 04:40 Tylenol Tablet PO 650 mg Q4H PRN Administration Mild Pain (1-3) or Fever Aspirin 81 mg
[2019-11-15] MEDS: MAGNESIUM SULF 1 GM/D5W 100 ML 1 GM/100 ML BAG IVPB (17:32)
[2019-11-15 17:33] LABS: Glucose Point of Care 126 (65-105)
[2019-11-15] MEDS: MAGNESIUM SULF 2 GM/WATER 50ML 2 GM/50 ML BAG IVPB (18:08)
[2019-11-15] MEDS: LATANOPROST 0.005% OP SOLN 2.5 ML BTL 1 DROP EACH EYE (20:25)
[2019-11-15 21:23] LABS: Glucose Point of Care 170 (65-105)
[2019-11-16] VITALS (9 sets, daily range): BP systolic 112–134; BP diastolic 49–78; PULSE 74–93; RESP 18–20; TEMP 35.9–36.3; O2SAT 95–98
[2019-11-16 04:34] LABS: Hematocrit 37.3 % (37.0-47.0); Hemoglobin 12.1 g/dL (12.0-15.0)
[2019-11-16 04:51] LABS: Blood Urea Nitrogen 16 mg/dL (7-17); Calcium 8.9 mg/dL (8.4-10.2); Carbon Dioxide 30 mmol/L (22-30); Chloride 99 mmol/L (98-107); Estimated CRCL calculation 64 ml/min; Estimated Glomerular Filt Rate > 60; Glucose 160 mg/dL (65-105); Magnesium 2.2 mg/dL (1.6-2.3); Potassium 4.1 mmol/L (3.4-5.0); Sodium 136 mmol/L (137-145)
[2019-11-16 08:36] LABS: Glucose Point of Care 159 (65-105)
[2019-11-16] MEDS: FUROSEMIDE INJ 40 MG/4 ML VIAL 20 MG IV PUSH (09:11)
[2019-11-16] MEDS: ENOXAPARIN 100 MG/ML SYRINGE 90 MG SUB-Q (09:11)
[2019-11-16] MEDS: carvediloL 3.125 MG TABLET PO (09:12)
[2019-11-16] MEDS: SACUBITRIL/VALSARTAN 24-26 MG TABLET 1 TAB PO (09:12)
[2019-11-16] MEDS: VITAMIN E 100 UNIT CAPSULE 200 UNIT PO (09:12)
[2019-11-16] MEDS: ATORVASTATIN 40 MG TABLET PO (09:12)
[2019-11-16] MEDS: MAGNESIUM OXIDE 400 MG TABLET PO (09:12)
[2019-11-16] MEDS: OMEGA 3 POLYUNSAT FATTY ACIDS 1 GM CAP PO (09:12)
[2019-11-16] MEDS: ASPIRIN 81 MG ENTERIC TABLET PO (09:12)
[2019-11-16] MEDS: SPIRONOLACTONE 25 MG TABLET PO (09:12)
--- NOTE | 2019-11-16 12:05 | PM.PNCARD ---
Progress Note: A&P Additional Plan 79-year-old white female with: Presumed diagnosis of coronary artery disease because of evidence of recent anterior wall infarction. Being treated medically without angiography since there is no evidence of significant ischemia burden. She appears to be hemodynamically stable, asymptomatic and a good candidate for discharge today. I will transition her Lovenox to apixaban as per Dr. Lainez's recommendation in her progress note. Follow-up in our office will be scheduled. Drew Casey MD [facility] Subjective Date/time seen: Date of service: 11/16/19 12:05 Interval history: 79-year-old lady with presumed ischemic cardiomyopathy with ECG and noninvasive imaging indicating evidence of anterior wall infarction with reduced left ventricular ejection fraction. By clinical history this event occurred several weeks prior to presentation. She has been started standard medical treatment for this and seems to be doing well. Patient is asymptomatic today sitting in the chair hoping to be discharged. Denies chest pain dyspnea or lightheadedness upon arising Exam Const: General: comfortable and no acute distress Other: Overweight elderly lady otherwise comfortable cooperative and in good spirits HENMT: Mouth: Yes moist mucous membranes Eyes: Sclera: sclerae normal Pupils: Equal, round and reactive pupils present Neck: Neck: no JVD Thyroid: thyroid normal Resp: Effort & Inspection: normal respiratory effort Auscultation: clear to auscultation bilaterally Cardio: Rate: regular rate Rhythm: regular rhythm Other: No gallop no murmur no rub GI: Auscultation: normal bowel sounds Neuro: Cognition (Neuro): normal cognition Extrem: General: normal to inspection Objective Data Vital Signs Vital Signs: Vital Signs - 24 hr 11/15/19 12:08 11/15/19 12:30 11/15/19 14:00 Temperature Pulse Rate 88 87 74 Respiratory Rate Blood Pressure Pulse Oximetry 11/15/19 16:00 11/15/19 16:46 11/15/19 19:49 Temperature 36.2 C L 36.1 C L Pulse Rate 86 82 84 Respiratory Rate 18 16 Blood Pressure 118/70 118/44 L Pulse Oximetry 100 92 11/15/19 20:00 11/15/19 20:24 11/15/19 22:00 Temperature Pulse Rate 83 88 81 Respiratory Rate Blood Pressure Pulse Oximetry 11/16/19 00:00 11/16/19 02:00 11/16/19 03:58 Temperature 36.0 C L 35.9 C L Pulse Rate 75 77 93 Respiratory Rate 18 18 Blood Pressure 112/55 L 134/71 Pulse Oximetry 95 95 11/16/19 04:00 11/16/19 06:00 11/16/19 08:00 Temperature 36.2 C L Pulse Rate 88 74 83 Respiratory Rate 18 Blood Pressure 112/78 Pulse Oximetry 96 11/16/19 09:12 11/16/19 10:00 Temperature Pulse Rate 90 83 Respiratory Rate Blood Pressure Pulse Oximetry Intake/Output Intake/Output: Intake & Output 11/13/19 11/14/19 11/15/19 11/16/19 23:59 23:59 23:59 23:59 Intake Total 240 2050 1880 940 Output Total 1250 1700 1300 Balance 240 800 180 -360 Meds/Results Medications: Active Medications Generic Name Dose Route Start Last Admin Trade Name Freq PRN Reason Stop Dose Admin Acetaminophen 650 mg 11/13/19 13:21 11/15/19 20:25 Tylenol Tablet PO 650 mg Q4H PRN Administration Mild Pain (1-3) or Fever Apixaban 5 mg 11/16/19 21:00 Eliquis PO Q12HR LISA Aspirin 81 mg 11/14/19 09:00 11/16/19 09:12 Aspirin Ec PO 81 mg DAILY LISA Administration Atorvastatin Calcium 40 mg 11/14/19 09:00 11/16/19 09:12 Lipitor PO 40 mg DAILY LISA Administration Carvedilol 3.125 mg 11/13/19 21:00 11/16/19 09:12 Coreg PO 3.125 mg Q12HR LISA Administration Dextrose 12.5 gm 11/13/19 15:38 Dextrose 50% Syringe IV PUSH PRN PRN Hypoglycemia Protocol Fish Oil 1 gm 11/14/19 09:00 11/16/19 09:12 Lovaza PO 1 gm DAILY LISA Administration Furosemide 20 mg 11/14/19 09:00 11/16/19 09:11 Lasix Inj IV PUSH 20 mg BID LISA Admini
[2019-11-16 12:20] LABS: Glucose Point of Care 145 (65-105)
--- NOTE | 2019-11-16 13:52 | PC.NURSE ---
Called Dr. Pacheco regarding patient discharge. Per MD pt to discharge today and provider is entering orders for discharge home at this time. air sampling and monitoring and IV line removed.
--- NOTE | 2019-11-16 14:30 | PM.DS ---
DS: Admitting Diagnosis Admitting Diagnosis Admitting Diagnosis: Acute combined systolic (congestive) and diastolic (congestive) heart failure DS: Discharge Diagnosis Discharge Diagnosis (1) Recent myocardial infarction of anterior wall: Status: Acute Assessment and Plan: Echocardiogram today shows findings consistent with ischemic cardiomyopathy with severe left ventricular dysfunction and akinesis of the mid and distal anteroseptal rene as well as the distal inferior and lateral rene with apical dyskinesis. EF is 30-35% Dr. Lainez has seen the patient, continue cardiology orders Lexiscan today results reviewed, continue to diuresis Pt does not need heart cath as she does not have significant burden. Continue medical treatment. (2) Hypertension: Qualifiers: Hypertension type: essential hypertension Qualified Code(s): I10 - Essential (primary) hypertension Code(s): I10 - Essential (primary) hypertension Status: Acute Assessment and Plan: Pt started on new medications (3) Type 2 diabetes mellitus: Code(s): E11.9 - Type 2 diabetes mellitus without complications Status: Acute Assessment and Plan: Restart janument tomorrow. DS: Summary Time Spent with Patient Time attestation: Total time spent providing and/or coordinating discharge services:40 minutes on day of discharge Exam Narrative: Exam Narrative: General: Well-developed elderly female sitting up in bed in no acute distress. Respiratory: Clear bilateral decreased air entry Cardiovascular: Regular rate and rhythm Gastrointestinal: Abdomen is soft, nontender Skin: Warm and dry. Extremities: No cyanosis or clubbing. Neurological: Alert. Cranial nerves 2-12 are grossly intact. No gross focal deficits to casual conversation. Psychiatric: Pleasant and cooperative with normal mood and affect. DS: Data Data Completed and Pending Labs on day of discharge: Labs from last 24 hours 11/16/19 11/16/19 11/16/19 11:52 08:12 04:16 Hgb Hct Sodium 136 L Potassium 4.1 Chloride 99 Carbon Dioxide 30 BUN 16 Creatinine 0.70 Estim Creat Clear Calc 64 Estimated GFR > 60 Glucose 160 H POC Capillary Glucose 145 H 159 H Calcium 8.9 Magnesium 2.2 11/16/19 11/15/19 11/15/19 04:16 21:21 16:19 Hgb 12.1 Hct 37.3 Sodium Potassium Chloride Carbon Dioxide BUN Creatinine Estim Creat Clear Calc Estimated GFR Glucose POC Capillary Glucose 170 H 126 H Calcium Magnesium Discharge Plan Discharge Attending physician on discharge: Yana Pacheco Consulting providers: Monica Lainez Discharging Clinician: Yana Pacheco Anticipated Discharge Date/Time: 11/16/19 14:28 Patient Disposition: Home, Self-Care Activity: as tolerated Diet: heart healthy Discharge Instructions: CARDIOLOGY DISCHARGE INSTRUCTIONS: ACTIVITY: Activity as tolerated with precautions to avoid falls. Rise slowly from a seated or lying position. Elevate legs when sitting. Weigh your self daily after you have urinated in the morning. If you gain more than 3 lb in 2 days or 5 lb in one week please call Dr Lainze's office and speak to one of the nurses. Limit your sodium intake to no more than 2000 mg per day. Limit your fluid intake to no more than 2 L (68 oz) per day. FOLLOW-UP: Follow up with [facility], [place] [facility] at [facility] [address] with Danyelle Antonio NP on November 29, 2019 at 11:30 a.m. Please arrive by 11:15 a.m. for your appointment. Bring photo ID, insurance card(s), and current medication list. Please complete the new patient form on both sides and bring
--- NOTE | 2019-11-16 15:05 | PC.NURSE ---
Discharge instructions reviewed in detail. Prescriptions sent to pt. pharmacy and forms for outpatient labwork given to pt. with instructions. Pt. verbalized understanding.
== END 2019-11-16 15:10 | disposition home or self-care (01) | DRG 282 ==
LOC: ANHED 13:26 → ANHIMU 13:46
PROVIDERS: Hospitalist; Internal Medicine Cardiovascular Disease; Nurse Practitioner Adult Health; Physician Assistant; Admitting Provider Internal Medicine; Emergency Provider Emergency Medicine; PCP Internal Medicine; Visit Provider Family Medicine
DX: I11.0 Hypertensive heart disease with heart failure (principal); I22.0 Subsequent ST elevation (STEMI) myocardial infarction of anterior wall; I50.41 Acute combined systolic (congestive) and diastolic (congestive) heart failure; R09.02 Hypoxemia; I25.5 Ischemic cardiomyopathy; E83.42 Hypomagnesemia; E78.5 Hyperlipidemia, unspecified; E04.8 Other specified nontoxic goiter; H40.9 Unspecified glaucoma; E11.9 Type 2 diabetes mellitus without complications; I25.10 Atherosclerotic heart disease of native coronary artery without angina pectoris; Z79.82 Long term (current) use of aspirin; Z98.42 Cataract extraction status, left eye; Z98.41 Cataract extraction status, right eye; Z90.710 Acquired absence of both cervix and uterus
CPT/HCPCS: 36415; 36600; 71275; 78452; 80048; 80076; 82465; 82805; 83036; 83735; 83880; 84484; 85014; 85018; 85025; 85027; 85380; 85610; 85730; 93005; 93017; 93970; 96372; 96374; 96375; 96376; 99285; A9270; A9502; C8929; G0378; J1650; J1940; J2785; J3475; Q9957; Q9967

== ENCOUNTER 2020-03-18 02:21 | Outpatient (CLI) | payer MEDICARE, SELFPAY ==
[2020-03-18 18:16] LABS: SARS-CoV-2 RNA PCR Negative
== END 2020-03-18 02:22 | disposition home or self-care (01) ==
LOC: ANHCOVIDDT 02:26
PROVIDERS: PCP Internal Medicine; Visit Provider Internal Medicine Cardiovascular Disease
DX: Z01.812 Encounter for preprocedural laboratory examination (principal); Z20.828 Contact with and (suspected) exposure to other viral communicable diseases
CPT/HCPCS: 87635; C9803; U0003

== ENCOUNTER 2020-03-20 03:32 | Day surgery (SDC) | payer MEDICARE, SELFPAY ==
[2020-03-19 13:30] VITALS: BMI 31.4
[2020-03-20] VITALS (13 sets, daily range): BP systolic 98–153; BP diastolic 54–99; PULSE 66–73; RESP 14–20; TEMP 36–36.1; O2SAT 92–100; BMI 31.1
[2020-03-20 07:47] LABS: Anion Gap 10 mmol/L (8-16); Blood Urea Nitrogen 16 mg/dL (7-17); Calcium 9.3 mg/dL (8.4-10.2); Carbon Dioxide 27 mmol/L (22-30); Chloride 106 mmol/L (98-107); Estimated CRCL calculation 54 ml/min; Estimated Glomerular Filt Rate > 60; Glucose 112 mg/dL (65-105); Potassium 4.2 mmol/L (3.4-5.0); Sodium 143 mmol/L (137-145)
[2020-03-20 07:48] LABS: Basophils Absolute Auto 0.1 K/mm3 (0.0-0.1); Basophils Percent Auto 0.7 % (0.2-1.2); Eosinophils Absolute Auto 0.1 K/mm3 (0-0.3); Eosinophils Percent Auto 1.3 % (0-4.4); Hematocrit 39.2 % (37.0-47.0); Hemoglobin 12.6 g/dL (12.0-15.0); Immature Granulocyte Absolute 0.02 K/mm3 (0.00-0.031); Immature Granulocyte Percent A 0.3 % (0-0.5); Lymphocytes Absolute Auto 2.13 K/mm3 (0.9-3.2); Lymphocytes Percent Auto 30.3 % (18.3-44.2); Mean Corpuscular HGB Conc 32.1 g/dl (32-36); Mean Corpuscular Hemoglobin 29.4 pg (26-34); Mean Corpuscular Volume 91.6 fl (80-100); Mean Platelet Volume 12.7 fl (7.4-10.4); Monocytes Absolute Auto 0.7 K/mm3 (0.1-0.6); Monocytes Percent Auto 9.8 % (2.6-8.5); Neutrophils Absolute Auto 4.1 K/mm3 (1.3-6.7); Neutrophils Percent Auto 57.6 % (45.5-73.1); Platelet Count Result 184 k/mm3 (150-375); Red Blood Count 4.28 M/mm3 (4.2-5.4); Red Cell Distribution Width 14.3 % (11.5-14.5)
[2020-03-20 07:59] LABS: INR 1.1
--- NOTE | 2020-03-20 08:39 | PM.IMHP ---
H&P: HPI History of Present Illness Date/Time: 03/20/20 08:39 Chief complaint: cardiomyopathy Narrative: Luz Guardado is a 79 year old female Who is here for cardiac catheterization. She presented in November with heart failure, and appeared to have had a recent anterolateral ND. Her chest stress test showed a large fixed severe infarct of the left ventricular apex with a small area of mild ischemia in the mid anterior mid inferolateral segments. The echo at that time showed akinesis of the mid and distal anteroseptal wall and distal inferior wall with dyskinesis of the apex, EF 30-35%. Follow-up echo recently showed EF of 30%, with a very aneurysmal apex and LV enlargement. The left ventricle appeared significantly worse than previously noted and I thought we should re-evaluate for potential reversible causes with a cardiac catheterization. the patient does note SENA but no angina. She has been on Eliquis to prevent LV thrombus which she has held since the . Review of Systems Constitutional: Constitutional: Reports no additional constitutional complaints ENT: Denies epistaxis Cardiovascular: Cardiovascular: Denies chest pain, Denies edema, Denies lightheadedness and Reports dyspnea on exertion Respiratory: Respiratory: Denies chest congestion and Reports dyspnea on exertion Gastrointestinal: Gastrointestinal: Denies abdominal pain and Denies hematochezia Musculoskeletal: Musculoskeletal: Reports back pain Integumentary/Breasts: Skin/Breast: Denies rash Neurologic: Reports numbness ( Neuropathy of right foot) Psychiatric: Psychiatric: Reports no additional psychiatric complaints [facility] Past Medical History Medical History (Updated 03/20/20 @ 08:46 by Monica Lainez MD) Acute combined systolic and diastolic CHF, NYHA class 1 (~11/2019) Glaucoma Hyperlipidemia Hypertension Seasonal allergies Thyroid goiter Large left-sided thyroid goiter which has been present for 20+ years. She has had the mass aspirated and is benign. no plans for surgical removal due to the fact that she is asymptomatic. Type 2 diabetes mellitus Surgical History Surgical History History of cataract extraction History of hysterectomy History of tonsillectomy Family History Family History Mother Acute myocardial infarction In her 70s Goiter Cerebrovascular accident Cause of Father Cerebrovascular accident Cause of Prostate carcinoma Sibling Hypertension Social History Social History Social History: The patient is and lives with her of 62 years in [place]. They have 2 sons. She is a lifelong nonsmoker and denies alcohol and drug use. She designates her as her surrogate decision maker and she wishes to be a full code. Smoking status: Never smoker Substance use: never Substance use type: does not use Living arrangements: with family Gender identity (if verbalized by the patient): Female Sexual Orientation (if Verbalized by the Patient): Straight or Heterosexual Spiritual care concerns: No Meds Home Medications and Allergies Home Medications Medication Instructions Recorded Confirmed Type aspirin 81 mg tablet,delayed 81 mg PO DAILY 05/15/19 03/20/20 History release latanoprost 0.005 % eye drops 1 drop EACH EYE HS 05/15/19 03/19/20 History omega-3 fatty acids 1,000 mg 1,000 mg PO DAILY 05/15/19 03/19/20 History capsule vitamin E 200 unit capsule 400 unit PO DAILY 05/15/19 03/19/20 History apixaban [Eliquis] 5 mg PO Q12HR #60 tablet 11/16/19 03/19/20 Rx atorvastatin 40 mg PO DAILY #30 tablet 11/16/19 03/19/20 Rx sacubitril-valsartan [Entresto] 1 tablet PO Q12HR #60 tablet 11/16/19 03/19/20 Rx blood sugar diagnostic #100 each 12/10/19 Rx sitagliptin 50 mg-metformin ER 2 t
--- NOTE | 2020-03-20 08:47 | WPDMODSED ---
Moderate Sedation Note-Pt Data Patient Data Diagnosis: History of [place] congestive heart failure ischemic cardiomyopathy Present Complaint: SENA Procedure to be performed/Plan: conscious sedation left heart catheterization possible PCI Allergies Allergy/AdvReac Type Severity Reaction Status Date / Time clindamycin Allergy Diarrhea Verified 03/19/20 13:38 niacin Allergy Flushing Verified 03/19/20 13:38 pregabalin [From Lyrica] Allergy Dizziness Verified 03/19/20 13:38 Home Medications Medication Instructions Recorded Confirmed Type aspirin 81 mg tablet,delayed 81 mg PO DAILY 05/15/19 03/20/20 History release latanoprost 0.005 % eye drops 1 drop EACH EYE HS 05/15/19 03/19/20 History omega-3 fatty acids 1,000 mg 1,000 mg PO DAILY 05/15/19 03/19/20 History capsule vitamin E 200 unit capsule 400 unit PO DAILY 05/15/19 03/19/20 History apixaban [Eliquis] 5 mg PO Q12HR #60 tablet 11/16/19 03/19/20 Rx atorvastatin 40 mg PO DAILY #30 tablet 11/16/19 03/19/20 Rx sacubitril-valsartan [Entresto] 1 tablet PO Q12HR #60 tablet 11/16/19 03/19/20 Rx blood sugar diagnostic #100 each 12/10/19 Rx sitagliptin 50 mg-metformin ER 2 tablet PO DAILY #60 tablet 02/11/20 03/19/20 Rx 1,000 mg tablet,extended release 24h mp carvedilol [Coreg] 25 mg PO BID 03/19/20 03/19/20 History spironolactone 12.5 mg PO QAM 03/19/20 03/19/20 History Current Medications: Active Medications Sodium Chloride (Normal Saline Iv) 500 mls @ 100 mls/hr IV CONT .Q5H LISA Sedation/Anesthesia: No previous sedation/anesthesia problems (including family history). [facility] Past Medical History Medical History (Updated 03/20/20 @ 08:46 by Monica Lainez MD) Acute combined systolic and diastolic CHF, NYHA class 1 (~11/2019) Glaucoma Hyperlipidemia Hypertension Seasonal allergies Thyroid goiter Large left-sided thyroid goiter which has been present for 20+ years. She has had the mass aspirated and is benign. no plans for surgical removal due to the fact that she is asymptomatic. Type 2 diabetes mellitus Surgical History Surgical History History of cataract extraction History of hysterectomy History of tonsillectomy Family History Family History Mother Acute myocardial infarction In her 70s Goiter Cerebrovascular accident Cause of Father Cerebrovascular accident Cause of Prostate carcinoma Sibling Hypertension Social History Social History Social History: The patient is and lives with her of 62 years in [place]. They have 2 sons. She is a lifelong nonsmoker and denies alcohol and drug use. She designates her as her surrogate decision maker and she wishes to be a full code. Smoking status: Never smoker Substance use: never Substance use type: does not use Living arrangements: with family Gender identity (if verbalized by the patient): Female Sexual Orientation (if Verbalized by the Patient): Straight or Heterosexual Spiritual care concerns: No Mod Sed Physical Exam Physical Exam Pre Procedural Exam: Normal: Appearance, Eyes, Ears, Nose, Neck, Throat, Airway, Lungs, Heart Size, Heart Rate, Heart Rhythm, Neuro Exam, Abdomen, Liver, Extremities ( intact pedal and femoral pulses) and Skin Hours since solid foods: 12 Hours since liquid intake: 12 Internal Medicine - PN: Obj Da Vital Signs Vital Signs: Vital Signs - 24 hr 03/20/20 07:49 Temperature 96.8 F L Pulse Rate 72 Respiratory Rate 14 Blood Pressure 151/85 H Pulse Oximetry 98 Meds/Results Medications: Active Medications Generic Name Dose Route Start Last Admin Trade Name Freq PRN Reason Stop Dose Admin Sodium Chloride 500 mls @ 100 mls/hr 03/20/20 06:00 Normal Saline Iv IV CONT .Q5H [facility]
--- NOTE | 2020-03-20 09:56 | PM.OP ---
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
--- NOTE | 2020-03-20 10:04 | PM.PROC ---
Procedure Note - Detailed Date of procedure: 03/20/20 Pre-op diagnosis: cardiomyopathy Post-op diagnosis: same Procedure performed: conscious sedation Left heart catheterization Description of procedure: Procedure: 1. Conscious sedation 2. Left heart catheterization 3. Selective Coronary angiography 4. Left ventriculography 5. Angiography of the right femoral artery Site: Right femoral artery Catheters: 5 [place] arterial sheath, 5 [place] 4 cm right and left Eliecer catheters, 5 [place] pigtail catheter Conscious sedation: The patient has no known prior history of adverse affects of conscious sedation. Oropharynx was clear. The patient is deemed a good candidate for conscious sedation. Conscious sedation began at: 902 a.m. Conscious sedation ended at: 9:32 a.m. Total conscious sedation time: 30 minutes Medications: Versed 1 mg, fentanyl 50 mcg IV push The patient had continuous hemodynamic monitoring, and was also continuously monitored by: Gabrielle Jernigan RN The patient tolerated conscious sedation well. Detailed procedure: After informed consent the patient brought to the labor relations director and the right femoral area was prepped and draped in the usual fashion. After conscious sedation and local anesthesia the right femoral artery was punctured and cannulated with the arterial sheath. Selective Coronary angiography was performed with the coronary catheters in multiple projections. These were withdrawn. The pigtail catheter was advanced into the central circulation and left ventricle for pressure measurements and left ventriculography which was performed in the ANGELO projection. This was withdrawn. Angiography of the right femoral artery showed the sheath entered a side branch before the common femoral, thus I did not use an Angioseal. The vessels were free of disease. Later the arterial sheath was removed and hemostasis was obtained using local pressure. The patient tolerated the procedure well with no complications. Estimated blood loss was negligible. Anesthesia: local ( 1% lidocaine, conscious sedation) Surgeon: Monica Lainez MD Estimated blood loss (mL): 10 Drains: No Packing: No Pathology: none sent Complications: No immediate complications Disposition: observation Findings: Pressures: Aortic pressure 126/80 mmHg and LV 130/16 mmHg. Left coronary artery: Left main was patent. The Left anterior descending was a large vessel which wrapped around the apex and supplied the distal inferior wall. The proximal Left anterior descending had a complex 70% lesion which involved the 1st septal and moderate size 1st diagonal. After the 2nd diagonal there is an 80-90% mid Left anterior descending stenosis and then in the mid to distal segment there was a long 50-60% stenosis. The circumflex was large and widely patent, free of disease. Right coronary artery: The very small right coronary artery was free of significant disease. Left ventriculogram: Left ventriculography revealed a large aneurysmal anterolateral apical and distal inferior wall. The inferior base and anterolateral base was hyperdynamic. We do not appear to be any significant mitral regurgitation. The ejection fraction is about 50 25%. Recommendations: Reviewed w/ Dr. Dunbar. The patients AR in November may have been 2nd to the 80-90% mLAD lesion and the mild antlat ischmia may be 2nd the diagonal lesions. The anterior and apical segments appear nonviable by Ilene and are aneurysmal, thus not likely to benefit from revascularization, and the more proximal lesion would be a complex intervention with little to gain (just a moderate sized diagonal). Will continue medical tx of her CAD and ischemic cardiomyopathy. Will increase Entresto to 49/51 mg BID. If we can demonstrate significant viability in the anteroapical region, it may be worth PCI. Will order a PET scan. Discussed pt's risk of SCD and recommend she consider an ICD; literature provided.
[2020-03-20] MEDS: traMADol HCL (*CRX) 50 MG TABLET PO (12:40)
--- NOTE | 2020-03-20 14:34 | SUR.PHASEII ---
Pt. and spouse given discharge education following cardiac cath. Pt. given instructed on changes to medications and when to resume Eliquis. Pt. and spouse verbalize understanding. Pt. escorted to private vehicle to be driven home by son. Sheath site noted to be clean, dry, and intact with no change in condition upon departure.
== END 2020-03-20 14:43 | disposition home or self-care (01) ==
PROVIDERS: PCP Internal Medicine; Visit Provider Internal Medicine Cardiovascular Disease
PROC: 4A023N7 Measurement of Cardiac Sampling and Pressure, Left Heart, Percutaneous Approach (ICD-10-PCS; CPT 93452; principal; 2020-03-20 08:30)
DX: I25.5 Ischemic cardiomyopathy (principal); I25.10 Atherosclerotic heart disease of native coronary artery without angina pectoris; I11.0 Hypertensive heart disease with heart failure; I50.9 Heart failure, unspecified; I25.2 Old myocardial infarction; E11.9 Type 2 diabetes mellitus without complications; E04.9 Nontoxic goiter, unspecified; H40.9 Unspecified glaucoma; Z79.82 Long term (current) use of aspirin; Z79.01 Long term (current) use of anticoagulants; Z79.84 Long term (current) use of oral hypoglycemic drugs
CPT/HCPCS: 36415; 80048; 85025; 85610; 93458; A9270; C1887; C1894; J0583; J1644; J2250; J3010; J7040

== ENCOUNTER 2021-09-10 13:00 | Outpatient (CLI) | payer MEDICARE, SELFPAY ==
--- NOTE | ~2021-09-10 | NM_ITS ---
EXAMINATION: NM thyroid scan w uptake DATE: 09/11/2021 14:27 INDICATION: Nontoxic goiter COMPARISON: CT dated 11/13/2019 and ultrasound dated 11/25/2015 TECHNIQUE: 362 microcuries [id number] was administered orally in capsule form. Scintigraphic images of th e thyroid gland were obtained at 24 hours. Thyroid uptake was calculated by the technologist. FINDINGS: The thyroid uptake is 5.9% (normal 10-30%), with the right lobe measuring 2.6% uptake and the left 2. 4%. There is heterogeneous distribution of activity in the thyroid lobes with relative increased upta ke in the mid inferior right thyroid lobe and relatively decreased uptake in the left thyroid. Interp retation for hyper- or hypofunctioning nodules is limited by the marked enlargement of the thyroid wi th multiple nodules IMPRESSION: 1. Decreased total thyroid uptake involving both the left and right thyroid lobes but with heterogen eous distribution of activity likely resulting from the asymmetric marked enlargement of the thyroid with multiple nodules. No clearly hyperfunctioning nodule and differential in the setting of hyperthy roidism would include subacute thyroiditis, silent thyroiditis, iodine induced hyperthyroidism and th yrotoxicosis of extrathyroidal origin including factitious hyperthyroidism and struma ovarii. Reviewed, dictated and finalized at location A. IMPRESSION: 1. Decreased total thyroid uptake involving both the left and right thyroid lo bes but with heterogeneous distribution of activity likely resulting from the a symmetric marked enlargement of the thyroid with multiple nodules. No clearly h yperfunctioning nodule and differential in the setting of hyperthyroidism would include subacute thyroiditis, silent thyroiditis, iodine induced hyperthyroidi sm and thyrotoxicosis of extrathyroidal origin including factitious hyperthyroi dism and struma ovarii.
== END 2021-09-10 13:01 | disposition home or self-care (01) ==
LOC: ANHIMG 13:07
PROVIDERS: PCP Internal Medicine; Visit Provider Internal Medicine
DX: E04.9 Nontoxic goiter, unspecified (principal); R79.89 Other specified abnormal findings of blood chemistry
CPT/HCPCS: 78014; A9516